=== PATIENT | female | born 1955 | race Caucasian/White ===

== ENCOUNTER 2020-10-07 12:33 | Observation (INO) ==
[2020-10-07] MEDS ORDERED: 0.9 % Sodium Chloride 1,000 ML IVC ONE (12:38)
[2020-10-07] MEDS ORDERED: Lactulose Oral Soln 20 GM/30 ML UDC PO ONE (12:38)
[2020-10-07 13:29] LABS: Basophils % 0.7 %; Eosinophils # 0.1 K/mcL (0.0-0.6); Eosinophils % 2.4 %; Hematocrit 38.1 % (35.3-44.9); Hemoglobin 13.2 g/dL (11.5-15.4); Lymphocytes # 0.7 K/mcL (0.6-4.6); Lymphocytes % 22.7 %; Mean Corpuscular HGB Conc 34.6 g/dL (31.6-35.5); Mean Corpuscular Hemoglobin 32.8 pg (28.0-33.3); Mean Corpuscular Volume 94.5 fL (83.0-100.0); Mean Platelet Volume 11.9 fL (9.4-12.4); Monocytes # 0.2 K/mcL (0.0-1.3); Monocytes % 5.6 %; Red Blood Count 4.03 M/mcL (3.82-4.97); Red Cell Distribution Width 14.6 % (11.5-14.5); Segmented Neutrophils % 68.6 %; White Blood Count 2.9 K/mcL (4.3-11.1)
[2020-10-07 13:31] LABS: INR 1.3; Prothrombin Time 14.7 Seconds (9.4-12.1)
[2020-10-07 13:34] LABS: Activated Partial Thrombo Time 33.1 Seconds (26.0-36.0); Platelet Count 53 K/mcL (140-400)
[2020-10-07 13:35] LABS: Bilirubin,Urine Negative (Negative); Blood,Urine Trace-intact (Negative); Clarity,Urine Clear (Clear); Glucose,Urine (UA) Normal (Normal); Ketones,Urine Negative (Negative); Leukocyte Esterase,Urine Negative (Negative); Nitrite,Urine Negative (Negative); Protein,Urine Negative (Neg-Trace); Urobilinogen,Urine Normal (Normal)
[2020-10-07 13:41] LABS: Color,Urine Light Yellow (Yellow)
[2020-10-07 13:42] LABS: Alanine Aminotransferase 55 Units/L (7-52); Albumin/Globulin Ratio 0.9 (1.1-2.2); Alkaline Phosphatase 149 Units/L (34-104); Aspartate Amino Transferase 49 Units/L (13-39); BUN/Creatinine Ratio 11 (6-26); Bilirubin,Direct 0.5 mg/dL (0.0-0.2); Bilirubin,Indirect 2.2 mg/dL (0.0-1.0); Bilirubin,Total 2.7 mg/dL (0.3-1.0); Blood Urea Nitrogen 12 mg/dL (8-23); Calcium 8.4 mg/dL (8.6-10.3); Carbon Dioxide 28 mEq/L (23-29); Chloride 106 mEq/L (98-107); Creatine Kinase 41 Units/L (30-223); Globulin 3.3 g/dL (2.4-3.5); Glucose 106 mg/dL (70-105); Osmolality,Calculated 292 (280-300); Potassium 4.1 mEq/L (3.5-5.1); Sodium 141 mEq/L (136-145); Total Protein 6.3 g/dL (6.4-8.9); Troponin I < 0.03 ng/mL (< 0.04); eGFR For African Americans > 60 (> 60); eGFR For Non-African Americans 51 (> 60)
[2020-10-07 13:43] LABS: RBC,Urine 0-3 per hpf (0-3); Squamous Epithelial Cell,Urine Few per hpf (None-Few); WBC,Urine 0-3 per hpf (0-3)
[2020-10-07 13:51] LABS: Platelet Estimate Decreased (Normal)
[2020-10-07] MEDS ORDERED: MOM Conc 10 ML UD.LIQ PO PRN (15:29)
[2020-10-07] MEDS ORDERED: Mag Hydrox/Al Hydrox/Simeth 30 ML UDC PO PRN (15:29)
[2020-10-07] MEDS ORDERED: Naloxone 0.4 MG/ML INJ IVP PRN (15:29)
[2020-10-07] MEDS ORDERED: Ondansetron 4 MG/2 ML VIAL IVP PRN (15:29)
[2020-10-07] MEDS: Lactulose Oral Soln 20 GM/30 ML UDC PO SCH (20:50)
[2020-10-07] MEDS: 0.9 % Sodium Chloride 1,000 ML IVC SCH (20:50)
[2020-10-08] MEDS: 0.9 % Sodium Chloride 1,000 ML IVC SCH (05:12)
[2020-10-08] MEDS ORDERED: Levothyroxine 25 MCG TABLET PO SCH (06:30)
[2020-10-08 07:45] LABS: Basophils % 0.4 %; Eosinophils # 0.1 K/mcL (0.0-0.6); Hematocrit 32.3 % (35.3-44.9); Hemoglobin 11.2 g/dL (11.5-15.4); Lymphocytes # 0.7 K/mcL (0.6-4.6); Mean Corpuscular HGB Conc 34.7 g/dL (31.6-35.5); Mean Corpuscular Volume 95.3 fL (83.0-100.0); Mean Platelet Volume 11.8 fL (9.4-12.4); Monocytes # 0.2 K/mcL (0.0-1.3); Neutrophils # 1.4 K/mcL (1.6-8.9); Red Blood Count 3.39 M/mcL (3.82-4.97); Red Cell Distribution Width 14.9 % (11.5-14.5); Segmented Neutrophils % 59.6 %; White Blood Count 2.3 K/mcL (4.3-11.1)
[2020-10-08 07:55] LABS: BUN/Creatinine Ratio 14 (6-26); Blood Urea Nitrogen 12 mg/dL (8-23); Calcium 7.9 mg/dL (8.6-10.3); Carbon Dioxide 25 mEq/L (23-29); Chloride 112 mEq/L (98-107); Glucose 77 mg/dL (70-105); Osmolality,Calculated 293 (280-300); Potassium 3.9 mEq/L (3.5-5.1); Sodium 142 mEq/L (136-145); eGFR For African Americans > 60 (> 60); eGFR For Non-African Americans > 60 (> 60)
[2020-10-08 08:01] LABS: Platelet Count 42 K/mcL (140-400)
[2020-10-08 08:10] VITALS: BP 102/59
[2020-10-08] MEDS ORDERED: Spironolactone 25 MG TABLET PO SCH (09:00)
[2020-10-08] MEDS ORDERED: Furosemide 20 MG TABLET PO SCH (09:00)
[2020-10-08] MEDS: Lactulose Oral Soln 20 GM/30 ML UDC PO SCH (09:08)
== END 2020-10-08 12:40 | disposition home or self-care (01) ==
LOC: EMEROOPIK 12:33 → INPPIK 12:33
PROVIDERS: ADMIT Family Medicine; ATTEND Family Medicine

== ENCOUNTER 2022-03-21 08:42 | Inpatient (IN) ==
[2022-03-21 09:26] LABS: Basophils % 0.4 %; Eosinophils # 0.2 K/mcL (0.0-0.6); Eosinophils % 3.9 %; Hematocrit 38.3 % (35.3-44.9); Hemoglobin 12.9 g/dL (11.5-15.4); Immature Granulocytes % 0.2 % (0-4); Lymphocytes # 1.1 K/mcL (0.6-4.6); Lymphocytes % 21.4 %; Mean Corpuscular HGB Conc 33.7 g/dL (31.6-35.5); Mean Corpuscular Hemoglobin 31.9 pg (28.0-33.3); Mean Corpuscular Volume 94.6 fL (83.0-100.0); Mean Platelet Volume 12.5 fL (9.4-12.4); Monocytes # 0.4 K/mcL (0.0-1.3); Monocytes % 8.1 %; Neutrophils # 3.4 K/mcL (1.6-8.9); Red Blood Count 4.05 M/mcL (3.82-4.97); Red Cell Distribution Width 14.9 % (11.5-14.5); White Blood Count 5.2 K/mcL (4.3-11.1)
[2022-03-21 09:28] LABS: Platelet Count 62 K/mcL (140-400)
[2022-03-21 09:29] LABS: INR 1.2; Prothrombin Time 13.5 Seconds (9.4-12.1)
[2022-03-21 09:32] LABS: Activated Partial Thrombo Time 33.6 Seconds (26.0-36.0)
[2022-03-21 09:33] LABS: Bilirubin,Urine Negative (Negative); Blood,Urine Trace-intact (Negative); Clarity,Urine Clear (Clear); Color,Urine Yellow (Yellow); Glucose,Urine (UA) Normal (Normal); Ketones,Urine Negative (Negative); Leukocyte Esterase,Urine Negative (Negative); Nitrite,Urine Negative (Negative); PH,Urine 7.5 pH Units (5.0-8.0); Protein,Urine Negative (Neg-Trace); Specific Gravity,Urine 1.015 (1.010-1.025)
[2022-03-21 09:41] LABS: Troponin I < 0.03 ng/mL (< 0.04)
[2022-03-21 09:43] LABS: Amphetamine Screen,Urine Negative ng/mL (Cutoff=1000); Barbiturate Screen,Urine Negative ng/mL (Cutoff=200); Benzodiazepines Screen,Urine Negative ng/mL (Cutoff=200); Cannabinoid Screen,Urine Negative ng/mL (Cutoff = 50); Cocaine Screen,Urine Negative ng/mL (Cutoff= 300); Opiate Screen,Urine Negative ng/mL (Cutoff=300); Phencyclidine Screen,Urine Negative ng/mL (Cutoff=25)
[2022-03-21 09:46] LABS: Amorphous Sediment,Urine Few per hpf (None-Few); Mucus,Urine Few per lpf (None-Few); RBC,Urine 0-3 per hpf (0-3); Squamous Epithelial Cell,Urine Few per hpf (None-Few); WBC,Urine 0-3 per hpf (0-3)
[2022-03-21 09:49] LABS: Alanine Aminotransferase 36 Units/L (7-52); Albumin 3.1 g/dL (3.5-5.7); Albumin/Globulin Ratio 0.8 (1.1-2.2); Alkaline Phosphatase 155 Units/L (34-104); Aspartate Amino Transferase 42 Units/L (13-39); BUN/Creatinine Ratio 14 (6-26); Bilirubin,Direct 0.3 mg/dL (0.0-0.2); Bilirubin,Indirect 2.8 mg/dL (0.0-1.0); Bilirubin,Total 3.1 mg/dL (0.3-1.0); Blood Urea Nitrogen 20 mg/dL (8-23); Calcium 9.1 mg/dL (8.6-10.3); Carbon Dioxide 26 mEq/L (23-29); Chloride 107 mEq/L (98-107); Creatine Kinase 91 Units/L (30-223); Ethanol < 10 mg/dL (Less than 10); Globulin 3.9 g/dL (2.4-3.5); Glucose 119 mg/dL (70-105); Osmolality,Calculated 290 (280-300); Potassium 4.2 mEq/L (3.5-5.1); Sodium 138 mEq/L (136-145); eGFR For African Americans 45 (> 60); eGFR For Non-African Americans 37 (> 60)
[2022-03-21] MEDS ORDERED: 0.9 % Sodium Chloride 1,000 ML IVC ONE (09:53)
[2022-03-21] MEDS ORDERED: Lactulose Oral Soln 20 GM/30 ML UDC PO ONE (10:00)
[2022-03-21] MEDS: 0.9 % Sodium Chloride 1,000 ML IVC SCH ×2 (11:21→18:23)
[2022-03-21] MEDS ORDERED: Ondansetron 4 MG/2 ML VIAL IVP PRN (11:35)
[2022-03-21] MEDS ORDERED: Naloxone 0.4 MG/ML INJ IVP PRN (11:35)
[2022-03-21] MEDS: Lactulose Oral Soln 20 GM/30 ML UDC PO SCH ×2 (16:18→21:09)
[2022-03-21] MEDS: Sucralfate 1 GM TABLET PO SCH (21:09)
[2022-03-22] MEDS: 0.9 % Sodium Chloride 1,000 ML IVC SCH (02:26)
[2022-03-22 07:38] LABS: Basophils % 0.5 %; Eosinophils # 0.1 K/mcL (0.0-0.6); Eosinophils % 3.5 %; Hematocrit 31.6 % (35.3-44.9); Hemoglobin 10.5 g/dL (11.5-15.4); Lymphocytes # 1.6 K/mcL (0.6-4.6); Mean Corpuscular HGB Conc 33.2 g/dL (31.6-35.5); Mean Corpuscular Hemoglobin 31.6 pg (28.0-33.3); Mean Corpuscular Volume 95.2 fL (83.0-100.0); Mean Platelet Volume 12.1 fL (9.4-12.4); Monocytes # 0.4 K/mcL (0.0-1.3); Neutrophils # 1.6 K/mcL (1.6-8.9); Red Blood Count 3.32 M/mcL (3.82-4.97); Red Cell Distribution Width 15.1 % (11.5-14.5); White Blood Count 3.7 K/mcL (4.3-11.1)
[2022-03-22 07:43] LABS: Platelet Count 53 K/mcL (140-400)
[2022-03-22 07:52] LABS: Calcium 8.1 mg/dL (8.6-10.3); Potassium 3.8 mEq/L (3.5-5.1)
[2022-03-22] MEDS: Lactulose Oral Soln 20 GM/30 ML UDC PO SCH ×3 (07:57→21:43)
[2022-03-22] MEDS: Sucralfate 1 GM TABLET PO SCH (21:43)
[2022-03-23 06:57] LABS: Calcium 8.5 mg/dL (8.6-10.3); Potassium 3.8 mEq/L (3.5-5.1)
[2022-03-23 07:59] LABS: Basophils % 0.3 %; Eosinophils # 0.2 K/mcL (0.0-0.6); Eosinophils % 5.3 %; Hematocrit 30.5 % (35.3-44.9); Hemoglobin 10.2 g/dL (11.5-15.4); Lymphocytes # 1.4 K/mcL (0.6-4.6); Mean Corpuscular HGB Conc 33.4 g/dL (31.6-35.5); Mean Corpuscular Hemoglobin 31.7 pg (28.0-33.3); Mean Corpuscular Volume 94.7 fL (83.0-100.0); Mean Platelet Volume 12.7 fL (9.4-12.4); Monocytes # 0.4 K/mcL (0.0-1.3); Monocytes % 10.9 %; Neutrophils # 1.5 K/mcL (1.6-8.9); Red Blood Count 3.22 M/mcL (3.82-4.97); Red Cell Distribution Width 14.8 % (11.5-14.5); Segmented Neutrophils % 43.5 %; White Blood Count 3.4 K/mcL (4.3-11.1)
[2022-03-23 08:16] LABS: Platelet Count 49 K/mcL (140-400)
[2022-03-23] MEDS: Lactulose Oral Soln 20 GM/30 ML UDC PO SCH ×3 (09:50→22:05)
[2022-03-23] MEDS: Sucralfate 1 GM TABLET PO SCH (22:05)
[2022-03-24 06:31] VITALS: O2SAT 97
[2022-03-24 07:24] LABS: Hematocrit 30.4 % (35.3-44.9); Hemoglobin 10.3 g/dL (11.5-15.4); Mean Corpuscular HGB Conc 33.9 g/dL (31.6-35.5); Mean Corpuscular Volume 94.4 fL (83.0-100.0); Mean Platelet Volume 12.8 fL (9.4-12.4); Red Blood Count 3.22 M/mcL (3.82-4.97); Red Cell Distribution Width 14.6 % (11.5-14.5); White Blood Count 3.6 K/mcL (4.3-11.1)
[2022-03-24 07:36] LABS: Platelet Count 48 K/mcL (140-400)
[2022-03-24] MEDS: Lactulose Oral Soln 20 GM/30 ML UDC PO SCH (08:19)
[2022-03-24 08:22] LABS: Alanine Aminotransferase 25 Units/L (7-52); Albumin 2.4 g/dL (3.5-5.7); Albumin/Globulin Ratio 0.8 (1.1-2.2); Alkaline Phosphatase 119 Units/L (34-104); Aspartate Amino Transferase 31 Units/L (13-39); BUN/Creatinine Ratio 17 (6-26); Blood Urea Nitrogen 17 mg/dL (8-23); Calcium 8.6 mg/dL (8.6-10.3); Carbon Dioxide 23 mEq/L (23-29); Chloride 107 mEq/L (98-107); Globulin 3.1 g/dL (2.4-3.5); Glucose 96 mg/dL (70-105); Osmolality,Calculated 281 (280-300); Potassium 3.7 mEq/L (3.5-5.1); Sodium 135 mEq/L (136-145); Total Protein 5.5 g/dL (6.4-8.9); eGFR For African Americans > 60 (> 60); eGFR For Non-African Americans 57 (> 60)
[2022-03-24 11:27] VITALS: BP 109/62; PULSE 72; RESP 15; TEMP 98.3
== END 2022-03-24 13:45 | disposition home or self-care (01) | DRG 442 ==
LOC: EMEROOPIK 08:42 → INPPIK 08:42
PROVIDERS: ADMIT Registered Nurse Emergency; ATTEND Registered Nurse Emergency

== ENCOUNTER 2022-07-27 13:06 | Observation (INO) ==
[2022-07-27 13:25] LABS: Bilirubin,Urine Negative (Negative); Blood,Urine Trace-lysed (Negative); Clarity,Urine Clear (Clear); Color,Urine Yellow (Yellow); Glucose,Urine (UA) Normal (Normal); Ketones,Urine Negative (Negative); Leukocyte Esterase,Urine Negative (Negative); Nitrite,Urine Negative (Negative); PH,Urine 7.5 pH Units (5.0-8.0); Protein,Urine Negative (Neg-Trace); Specific Gravity,Urine 1.015 (1.010-1.025)
[2022-07-27 13:37] LABS: Basophils % 0.5 %; Eosinophils # 0.2 K/mcL (0.0-0.6); Hematocrit 35.3 % (35.3-44.9); Hemoglobin 12.4 g/dL (11.5-15.4); Lymphocytes # 1.4 K/mcL (0.6-4.6); Lymphocytes % 34.9 %; Mean Corpuscular HGB Conc 35.1 g/dL (31.6-35.5); Mean Corpuscular Hemoglobin 32.3 pg (28.0-33.3); Mean Corpuscular Volume 91.9 fL (83.0-100.0); Mean Platelet Volume 12.1 fL (9.4-12.4); Monocytes # 0.3 K/mcL (0.0-1.3); Monocytes % 6.2 %; Red Blood Count 3.84 M/mcL (3.82-4.97); Red Cell Distribution Width 15.4 % (11.5-14.5); Segmented Neutrophils % 53.4 %
[2022-07-27 13:38] LABS: Amphetamine Screen,Urine Negative ng/mL (Cutoff=1000); Barbiturate Screen,Urine Negative ng/mL (Cutoff=200); Benzodiazepines Screen,Urine Negative ng/mL (Cutoff=200); Cannabinoid Screen,Urine Negative ng/mL (Cutoff = 50); Cocaine Screen,Urine Negative ng/mL (Cutoff= 300); Opiate Screen,Urine Negative ng/mL (Cutoff=300); Phencyclidine Screen,Urine Negative ng/mL (Cutoff=25)
[2022-07-27 13:39] LABS: Squamous Epithelial Cell,Urine Few per hpf (None-Few); WBC,Urine 0-3 per hpf (0-3)
[2022-07-27 13:40] LABS: Neutrophils # 2.1 K/mcL (1.6-8.9); Platelet Count 63 K/mcL (140-400)
[2022-07-27 13:46] LABS: INR 1.3; Prothrombin Time 14.3 Seconds (9.4-12.1)
[2022-07-27 13:53] LABS: Ethanol < 10 mg/dL (Less than 10); Lipase 48 Units/L (11-82); Magnesium 1.9 mg/dL (1.6-2.6); Phosphorous 3.9 mg/dL (2.7-4.5)
[2022-07-27 13:54] LABS: Albumin/Globulin Ratio 0.9 (1.1-2.2); Bilirubin,Direct 0.3 mg/dL (0.0-0.2); Bilirubin,Total 3.4 mg/dL (0.3-1.0); Calcium 8.9 mg/dL (8.6-10.3); Globulin 3.2 g/dL (2.4-3.5); Potassium 3.8 mEq/L (3.5-5.1); Total Protein 6.2 g/dL (6.4-8.9)
[2022-07-27 13:56] LABS: Troponin I < 0.03 ng/mL (< 0.04)
[2022-07-27] MEDS ORDERED: Lactulose Oral Soln 20 GM/30 ML UDC PO ONE ×2 (14:22→15:18)
[2022-07-27] MEDS ORDERED: Ondansetron 4 MG/2 ML VIAL IVP PRN (15:18)
[2022-07-27] MEDS ORDERED: Naloxone 0.4 MG/ML INJ IVP PRN (15:18)
[2022-07-27] MEDS ORDERED: 0.9 % Sodium Chloride 1,000 ML IVC SCH (17:15)
[2022-07-27] MEDS: Lactulose Oral Soln 20 GM/30 ML UDC PO SCH (20:50)
[2022-07-27] MEDS ORDERED: Sucralfate 1 GM TABLET PO SCH (21:00)
[2022-07-28 05:41] LABS: Hematocrit 33.1 % (35.3-44.9); Hemoglobin 11.4 g/dL (11.5-15.4); Mean Corpuscular HGB Conc 34.4 g/dL (31.6-35.5); Mean Platelet Volume 12.2 fL (9.4-12.4); Red Blood Count 3.56 M/mcL (3.82-4.97); Red Cell Distribution Width 15.7 % (11.5-14.5); White Blood Count 3.6 K/mcL (4.3-11.1)
[2022-07-28 05:46] LABS: Platelet Count 58 K/mcL (140-400)
[2022-07-28 07:28] LABS: Albumin 2.6 g/dL (3.5-5.7); Albumin/Globulin Ratio 0.9 (1.1-2.2); Calcium 8.3 mg/dL (8.6-10.3); Globulin 2.8 g/dL (2.4-3.5); Potassium 3.6 mEq/L (3.5-5.1); Total Protein 5.4 g/dL (6.4-8.9)
[2022-07-28] MEDS: Lactulose Oral Soln 20 GM/30 ML UDC PO SCH ×2 (09:02→14:37)
[2022-07-28 11:29] VITALS: BP 116/71; PULSE 60; RESP 16; TEMP 97.8; O2SAT 98
[2022-07-29] MEDS ORDERED: Furosemide 20 MG TABLET PO SCH (09:00)
[2022-07-29] MEDS ORDERED: Spironolactone 25 MG TABLET PO SCH (09:00)
== END 2022-07-28 16:15 | disposition home health service (06) ==
LOC: INPPIK 13:06 → EMEROOPIK 13:06 → INPPIK 16:06
PROVIDERS: ADMIT Family Medicine; ATTEND Family Medicine